=== PATIENT | female | born 1970 | race Caucasian/White ===

== ENCOUNTER 2017-07-11 09:41 | Outpatient (CLI) | payer OTHER ==
[~2017-07-11 09:41] MED LIST: FIORICET 50-321 EACH PO; NABUMETONE500 MG PO; NORFLEX100MG PO; ORPH100T PO
== END 2017-07-11 09:50 | disposition home or self-care (01) ==
LOC: SONOGRAMA 09:41
DX: R93.3 Abnormal findings on diagnostic imaging of other parts of digestive tract (principal); R10.10 Upper abdominal pain, unspecified; Z86.010 Personal history of colon polyps

== ENCOUNTER 2017-08-07 09:56 | Outpatient (CLI) | payer OTHER | END 2017-08-07 17:00 | disposition home or self-care (01) | LOC: SONOGRAMA 09:56 | DX: R10.2 Pelvic and perineal pain (principal); N83.201 Unspecified ovarian cyst, right side ==

== ENCOUNTER 2017-11-05 10:22 | Outpatient (CLI) | payer OTHER | END 2017-11-05 10:31 | disposition home or self-care (01) | LOC: SONOGRAMA 10:22 | DX: R10.2 Pelvic and perineal pain (principal) ==

== ENCOUNTER 2018-04-10 17:36 | Emergency (ER) | payer OTHER ==
[~2018-04-10] VITALS: Ht 170.2 cm; Wt 58.1 kg
[2018-04-10] MEDS ORDERED: SYNTHROID112 MCG (17:47)
== END 2018-04-10 19:55 | disposition home or self-care (01) ==
LOC: ER 17:36
DX: M62.838 Other muscle spasm (principal); M43.6 Torticollis; M54.2 Cervicalgia

== ENCOUNTER 2018-08-30 09:46 | Outpatient (CLI) | payer OTHER ==
[~2018-08-30 09:46] MED LIST changes: +SYNTHROID112 MCG
== END 2018-08-30 09:50 | disposition home or self-care (01) ==
LOC: MAMO-SONO 09:46
DX: Z12.31 Encounter for screening mammogram for malignant neoplasm of breast (principal)

== ENCOUNTER 2018-10-11 09:26 | Outpatient (CLI) | payer OTHER | END 2018-10-11 09:44 | disposition home or self-care (01) | LOC: SONOGRAMA 09:26 → MAMO-SONO 09:45 | DX: N83.201 Unspecified ovarian cyst, right side (principal); Z01.419 Encounter for gynecological examination (general) (routine) without abnormal findings; Z11.3 Encounter for screening for infections with a predominantly sexual mode of transmission; R10.2 Pelvic and perineal pain ==

== ENCOUNTER 2019-01-25 08:46 | Outpatient (CLI) | payer OTHER | END 2019-01-25 14:04 | disposition home or self-care (01) | LOC: LAB 08:46 | DX: E78.00 Pure hypercholesterolemia, unspecified (principal); E03.8 Other specified hypothyroidism; Z13.0 Encounter for screening for diseases of the blood and blood-forming organs and certain disorders involving the immune mechanism ==

== ENCOUNTER 2019-10-23 12:45 | Outpatient (CLI) | payer OTHER ==
[~2019-10-23] VITALS: Ht 170.2 cm; Wt 59.9 kg
[2019-10-23] MEDS ORDERED: FLONASE16 GM NASAL (13:38)
[2019-10-23] MEDS ORDERED: ZYRTEC10 M3 PO (13:39)
== END 2019-10-23 13:55 | disposition home or self-care (01) ==
LOC: OFIC 805 12:45
PROVIDERS: ATTEND Otolaryngology
DX: R42 Dizziness and giddiness (principal); J34.89 Other specified disorders of nose and nasal sinuses; H61.23 Impacted cerumen, bilateral; H92.03 Otalgia, bilateral

== ENCOUNTER 2019-11-13 13:56 | Outpatient (CLI) | payer OTHER ==
[~2019-11-13 13:56] MED LIST changes: +FLONASE16 GM NASAL; +ZYRTEC10 M3 PO
== END 2019-11-13 14:17 | disposition home or self-care (01) ==
LOC: MAMO-SONO 13:56
PROVIDERS: ATTEND Obstetrics & Gynecology
DX: Z12.31 Encounter for screening mammogram for malignant neoplasm of breast (principal); Z01.419 Encounter for gynecological examination (general) (routine) without abnormal findings; N64.4 Mastodynia

== ENCOUNTER 2019-11-20 12:19 | Outpatient (CLI) | payer OTHER | END 2019-11-21 08:48 | disposition home or self-care (01) | LOC: OFIC 805 12:19 | PROVIDERS: ATTEND Otolaryngology | DX: R09.81 Nasal congestion (principal); H92.03 Otalgia, bilateral; J34.89 Other specified disorders of nose and nasal sinuses; R42 Dizziness and giddiness ==

== ENCOUNTER 2020-01-28 08:58 | Outpatient (CLI) | payer OTHER | END 2020-01-28 09:30 | disposition home or self-care (01) | LOC: OFIC 805 08:58 | PROVIDERS: ATTEND Otolaryngology | DX: J34.89 Other specified disorders of nose and nasal sinuses (principal); H92.03 Otalgia, bilateral; R09.81 Nasal congestion; R42 Dizziness and giddiness ==

== ENCOUNTER 2020-02-18 12:06 | Outpatient (CLI) | payer OTHER | END 2020-02-18 12:09 | disposition home or self-care (01) | LOC: RAD 12:06 | PROVIDERS: ATTEND Internal Medicine | DX: M25.552 Pain in left hip (principal) ==

== ENCOUNTER → 2020-02-18 | Outpatient (CLI) | payer OTHER | END | disposition home or self-care (01) | LOC: OFIC 805 08:46 | PROVIDERS: ATTEND Otolaryngology | DX: R42 Dizziness and giddiness (principal); J34.89 Other specified disorders of nose and nasal sinuses; R09.81 Nasal congestion; J32.8 Other chronic sinusitis ==

== ENCOUNTER → 2020-04-06 | Outpatient (CLI) | payer OTHER | END | disposition home or self-care (01) | LOC: OFIC 805 08:30 | PROVIDERS: ATTEND Otolaryngology | DX: J32.8 Other chronic sinusitis (principal); R09.81 Nasal congestion; H92.03 Otalgia, bilateral ==

== ENCOUNTER → 2020-09-08 15:00 | Outpatient (CLI) | payer OTHER | END | disposition home or self-care (01) | LOC: PPH VACUNA 15:00 | DX: Z23 Encounter for immunization (principal) ==

== ENCOUNTER 2020-11-30 11:07 | Outpatient (CLI) | payer OTHER | END 2020-11-30 11:23 | disposition home or self-care (01) | LOC: MAMO-SONO 11:07 | PROVIDERS: ATTEND Obstetrics & Gynecology | DX: N64.59 Other signs and symptoms in breast (principal); R10.2 Pelvic and perineal pain; N64.4 Mastodynia; Z12.31 Encounter for screening mammogram for malignant neoplasm of breast; Z87.898 Personal history of other specified conditions ==

== ENCOUNTER 2021-01-05 09:43 | Outpatient (CLI) | payer OTHER | END 2021-01-05 09:52 | disposition home or self-care (01) | LOC: TOM 09:43 | DX: J32.8 Other chronic sinusitis (principal) ==

== ENCOUNTER → 2021-03-31 13:43 | Outpatient (CLI) | payer OTHER | END | disposition home or self-care (01) | LOC: SONOGRAMA 13:43 | PROVIDERS: ATTEND Internal Medicine | DX: D25.1 Intramural leiomyoma of uterus (principal); N93.8 Other specified abnormal uterine and vaginal bleeding; N85.00 Endometrial hyperplasia, unspecified ==

== ENCOUNTER 2021-04-01 08:11 | Outpatient (CLI) | payer OTHER | END 2021-04-01 08:16 | disposition home or self-care (01) | LOC: PPH VACUNA 08:11 | PROVIDERS: ATTEND Emergency Medicine Pediatric Emergency Medicine | DX: Z23 Encounter for immunization (principal) ==

== ENCOUNTER 2022-03-02 08:12 | Outpatient (CLI) | payer OTHER | END 2022-03-02 08:32 | disposition home or self-care (01) | LOC: SONOGRAMA 08:12 | PROVIDERS: ATTEND Obstetrics & Gynecology | DX: R10.2 Pelvic and perineal pain (principal) ==

== ENCOUNTER 2022-03-09 08:37 | Outpatient (CLI) | payer OTHER | END 2022-03-09 08:49 | disposition home or self-care (01) | LOC: RAD 08:37 | PROVIDERS: ATTEND Physical Medicine & Rehabilitation | DX: M54.2 Cervicalgia (principal) ==

== ENCOUNTER 2023-01-26 08:09 | Outpatient (CLI) | payer OTHER | END 2023-01-26 08:23 | disposition home or self-care (01) | LOC: MRI 08:09 | PROVIDERS: ATTEND Internal Medicine | DX: N28.9 Disorder of kidney and ureter, unspecified (principal) | CPT/HCPCS: 74183 ==

== ENCOUNTER 2023-03-01 08:57 | Outpatient (CLI) | payer OTHER | END 2023-03-01 09:09 | disposition home or self-care (01) | LOC: TOM 08:57 | PROVIDERS: ATTEND Otolaryngology Otology & Neurotology | DX: J31.0 Chronic rhinitis (principal) ==

== ENCOUNTER 2023-05-10 07:51 | Outpatient (CLI) | payer OTHER | END 2023-05-10 07:57 | disposition home or self-care (01) | LOC: SONOGRAMA 07:51 | PROVIDERS: ATTEND Internal Medicine | DX: R10.2 Pelvic and perineal pain (principal) ==

== ENCOUNTER 2023-06-28 10:42 | Outpatient (CLI) | payer OTHER | END 2023-06-28 10:59 | disposition home or self-care (01) | LOC: RAD 10:42 | PROVIDERS: ATTEND Internal Medicine | DX: M54.50 Low back pain, unspecified (principal); R10.9 Unspecified abdominal pain; M25.551 Pain in right hip ==

== ENCOUNTER 2023-08-03 09:06 | Outpatient (CLI) | payer OTHER | END 2023-08-03 09:19 | disposition home or self-care (01) | LOC: SONOGRAMA 09:06 | PROVIDERS: ATTEND Obstetrics & Gynecology | DX: R22.1 Localized swelling, mass and lump, neck (principal); R10.2 Pelvic and perineal pain; R19.00 Intra-abdominal and pelvic swelling, mass and lump, unspecified site ==

== ENCOUNTER 2023-11-22 07:08 | Outpatient (CLI) | payer OTHER ==
[2024-02-07] MEDS ORDERED: SYNTHROID112 MCG PO (12:48)
== END 2023-11-22 07:15 | disposition home or self-care (01) ==
LOC: EKG 07:08 → LAB 07:08 → EKG 07:15
PROVIDERS: ATTEND Internal Medicine
DX: R07.9 Chest pain, unspecified (principal)

== ENCOUNTER 2024-02-05 08:26 | Outpatient (CLI) | payer OTHER ==
[2024-02-07] MEDS ORDERED: SYNTHROID112 MCG PO (12:48)
== END 2024-02-05 08:30 | disposition home or self-care (01) ==
LOC: RAD 08:26
PROVIDERS: ATTEND Internal Medicine
DX: R05.9 Cough, unspecified (principal)

== ENCOUNTER 2024-02-11 06:41 | Day surgery (SDC) | payer OTHER ==
[~2024-02-11 06:41] MED LIST changes: +SYNTHROID112 MCG PO
[2024-02-11] MEDS ORDERED: CHLORHEXIDINE GLUCONATE 120 ML BOTTLE TOP ONE (08:59)
[2024-02-11] MEDS ORDERED: POVIDONE-IODINE 118 ML BOTT TOP ONE (08:59)
[2024-02-11] MEDS ORDERED: MORPHINE SULFATE 4 MG/ML VIAL IV PRN (10:15)
[2024-02-11] MEDS ORDERED: PROMETHAZINE HCL 50 MG/ML AMPUL IM ONE (10:15)
== END 2024-02-11 14:25 | disposition home or self-care (01) ==
LOC: CIR.AMB 06:41
PROVIDERS: ATTEND Obstetrics & Gynecology
DX: N84.0 Polyp of corpus uteri (principal); N72 Inflammatory disease of cervix uteri; E03.9 Hypothyroidism, unspecified

== ENCOUNTER 2024-06-16 18:43 | Emergency (ER) | payer OTHER ==
[~2024-06-16] VITALS: Ht 170.2 cm; Wt 49.9 kg
[2024-06-16 19:27] LABS: HEMATOCRIT 38.7 % (36.0-45.00); HEMOGLOBIN 13.1 g/dL (12.0-15.00); MEAN CELL VOLUME 87.1 fL (80.00-100.00); MEAN CORPUSCULAR HEMOGLOBIN 29.5 pg (27.00-32.0); MEAN CORPUSCULAR HGB CONC 33.8 g/dl (32.0-36.0); PLATELET COUNT 265 K/uL (150-450); RED BLOOD COUNT 4.44 M/uL (4.00-6.00); RED CELL DISTRIBUTION WIDTH 12.5 % (11.5-14.5)
== END 2024-06-16 20:58 | disposition home or self-care (01) ==
LOC: ER 18:43
PROVIDERS: Internal Medicine
DX: H93.8X1 Other specified disorders of right ear (principal)

== ENCOUNTER 2024-07-23 08:26 | Outpatient (CLI) | payer OTHER | END 2024-07-23 08:35 | disposition home or self-care (01) | LOC: TOM 08:26 | PROVIDERS: ATTEND Internal Medicine | DX: D28.2 Benign neoplasm of uterine tubes and ligaments (principal) ==

== ENCOUNTER → 2024-11-26 | Outpatient (CLI) | payer OTHER ==
[2024-11-26 09:47] LABS: ALT/SGPT 29 U/L (12-78); AST/SGOT 19 U/L (15-37); LDH 158 U/L (84-246); PHOSPHOKINASE CREATININE 60 U/L (26-192)
== END | disposition home or self-care (01) ==
LOC: LAB 08:12
PROVIDERS: ATTEND Internal Medicine
DX: R07.89 Other chest pain (principal)